=== PATIENT | male | born 1975 | race Caucasian/White ===

== ENCOUNTER → 2017-03-21 | Outpatient (CLI) | payer BC ==
[~2017-03-21] MED LIST: ASPI-621 PO; CELE100C PO; DIAZ5TAB4 PO; DICL50TA2 PO; DOCU-131 PO; ONDA4TAB10 PO; OXYC5TAB3 PO; TRAM50TA2 PO
[2017-03-21 10:56] LABS: HEMATOCRIT 45.7 % (39.2-51.8); HEMOGLOBIN 15.5 g/dL (13.7-18.0); WHITE BLOOD COUNT 4.8 x10^3/uL (3.4-10)
[2017-03-21 11:02] LABS: BLOOD UREA NITROGEN 13 mg/dL (7-18)
[2017-03-21 11:06] LABS: ASPARTATE AMINO TRANSFERASE 13 U/L (15-37)
[2017-03-21 11:20] LABS: HIV 1&2 ANTIBODY SCREEN Nonreactive (Nonreactive); HIV-1 p24 ANTIGEN Nonreactive (Nonreactive)
== END | disposition home or self-care (01) ==
LOC: STAR 09:38
PROVIDERS: ATTEND Orthopaedic Surgery
DX: Z01.818 Encounter for other preprocedural examination (principal); M16.12 Unilateral primary osteoarthritis, left hip
CPT/HCPCS: 36415; 80053; 83036; 85025; 85610; 85730; 86703; 87081; 87899; 93005; G0435

== ENCOUNTER 2017-03-31 07:48 | Inpatient (IN) | payer BC ==
[~2017-03-31] VITALS: Ht 170.2 cm; Wt 99.0 kg
[~2017-03-31 07:48] MED LIST changes: -ASPI-621 PO; -CELE100C PO; -DIAZ5TAB4 PO; -DOCU-131 PO; -ONDA4TAB10 PO; -OXYC5TAB3 PO
[2017-03-31] MEDS ORDERED: VANCOMYCIN PER PHARMACY MC STA (08:02)
[2017-03-31] MEDS ORDERED: VANCOMYCIN 1,800 MG in SODIUM CHLORIDE 0.9% 250 ML IV ONE (08:30)
[2017-03-31 08:46] VITALS: BP 144/93
[2017-03-31] MEDS ORDERED: LACTATED RINGERS 1,000 ML IV SCH (08:54)
[2017-03-31] MEDS ORDERED: FENTANYL PF 100 MCG/2ML ONE ×2 (09:16→10:02)
[2017-03-31] MEDS ORDERED: PROPOFOL 10 MG/ML, 20ML ONE ×2 (09:16→11:27)
[2017-03-31] MEDS ORDERED: MIDAZOLAM 1 MG/ML, 2ML ONE (09:16)
[2017-03-31] MEDS ORDERED: ROCURONIUM 10 MG/ML ONE (09:16)
[2017-03-31] MEDS ORDERED: SUCCINYLCHOLINE 20 MG/ML, 10ML ONE (09:16)
[2017-03-31] MEDS ORDERED: ONDANSETRON 2MG/ML, 2ML ONE ×2 (09:20)
[2017-03-31] MEDS ORDERED: DEXAMETHASONE 4 MG/ML, 1ML ONE ×2 (09:20)
[2017-03-31] MEDS ORDERED: KETOROLAC 60 MG/2 ML ONE (09:30)
[2017-03-31] MEDS ORDERED: TRANEXAMIC ACID 100 MG/ML, 10ML ONE ×5 (09:31→09:32)
[2017-03-31] MEDS ORDERED: SODIUM CHLORIDE 0.9% 50 ML ONE (09:31)
[2017-03-31] MEDS ORDERED: ROPIvacaine/PF 0.2%, 20 ML ONE (09:31)
[2017-03-31] MEDS ORDERED: EPINEPHRINE 1 MG/ML, 1ML ONE (09:32)
[2017-03-31] MEDS ORDERED: CEFAZOLIN 1,000 MG ONE (09:41)
[2017-03-31] MEDS ORDERED: KETAMINE 10 MG/ML, 20ML ONE (10:00)
[2017-03-31] MEDS ORDERED: HYDROmorphone 1 MG/ML, 1ML IV PRN (10:00)
[2017-03-31] MEDS ORDERED: EPHEDRINE 50 MG/ML, 1ML ONE (10:00)
[2017-03-31] MEDS ORDERED: ONDANSETRON 2MG/ML, 2ML IV PRN (10:00)
[2017-03-31] MEDS ORDERED: BISACODYL 10 MG SUPP PR PRN (10:00)
[2017-03-31] MEDS ORDERED: DIAZEPAM 5 MG TABLET PO PRN (10:00)
[2017-03-31] MEDS ORDERED: DIPHENHYDRAMINE 50 MG CAPSULE PO PRN (10:00)
[2017-03-31] MEDS ORDERED: SENNA/DOCUSATE TABLET PO PRN (10:00)
[2017-03-31] MEDS ORDERED: ALUMINUM/MAG/SIMETHICONE 30 ML UDC PO PRN (10:00)
[2017-03-31] MEDS ORDERED: ONDANSETRON 4 MG TABLET PO PRN (10:00)
[2017-03-31] MEDS ORDERED: ACETAMINOPHEN 650 MG/20.3 ML UDC PO PRN (10:00)
[2017-03-31] MEDS ORDERED: MAGNESIUM HYDROXIDE 8%, 30ML UDC PO PRN (10:00)
[2017-03-31] MEDS ORDERED: VASOPRESSIN 20 UNIT/ML, 1ML ONE (10:09)
[2017-03-31] MEDS ORDERED: ACETAMINOPHEN 325 MG TABLET PO PRN (10:30)
[2017-03-31] MEDS ORDERED: FENTANYL PF 100 MCG/2ML IV PRN (10:30)
[2017-03-31] MEDS ORDERED: MIDAZOLAM 1 MG/ML, 2ML IV PRN (10:30)
[2017-03-31] MEDS ORDERED: ALBUTEROL SULFATE 2.5 MG/3 ML NPPB PRN (10:30)
[2017-03-31] MEDS ORDERED: LABETALOL 5MG/ML, 20ML IV PRN (10:30)
[2017-03-31] MEDS ORDERED: hydrALAzine 20 MG/ML, 1ML IV PRN (10:30)
[2017-03-31] MEDS ORDERED: MEPERIDINE/PF 25MG/0.5ML IVPush PRN (10:30)
[2017-03-31] MEDS ORDERED: ONDANSETRON 2MG/ML, 2ML IVPush PRN (10:30)
[2017-03-31] MEDS ORDERED: PROMETHAZINE 25 MG/ML, 1ML IV PRN (10:30)
[2017-03-31] MEDS ORDERED: ACETAMINOPHEN 650 MG/20.3 ML UDC ONE (11:46)
[2017-03-31] MEDS ORDERED: ACETAMINOPHEN 325 MG TABLET ONE (11:46)
[2017-03-31] MEDS ORDERED: HYDROmorphone 1 MG/ML, 1ML ONE ×2 (11:47→12:07)
[2017-03-31] MEDS ORDERED: OXYcodone 5 MG/5 ML ORAL.SOL UDC ONE (11:47)
[2017-03-31] MEDS: OXYcodone 5 MG/5 ML ORAL.SOL UDC PO PRN (11:50)
[2017-03-31] MEDS: HYDROmorphone 1 MG/ML, 1ML IV PRN ×4 (11:50→12:31)
[2017-03-31] MEDS ORDERED: TRANEXAMIC ACID 1,000 MG in SODIUM CHLORIDE 0.9% 100 ML IVPB ONE (12:00)
[2017-03-31] MEDS ORDERED: DIAZEPAM 5 MG/ML, 2ML IVPush PRN (12:30)
[2017-03-31 13:42] VITALS: BP 148/94
[2017-03-31] MEDS: CEFAZOLIN PMX 1GM/50ML 50 ML IVPB SCH ×2 (14:50→22:25)
[2017-03-31] MEDS: D5%-0.45% NACL 1,000 ML IV SCH ×2 (15:21→19:27)
[2017-03-31] MEDS: ASPIRIN 81 MG TABLET EC PO SCH (19:26)
[2017-03-31] MEDS: OXYcodone IR 5MG TABLET PO PRN ×2 (19:26→23:43)
[2017-03-31 20:12] VITALS: BP 125/75
[2017-03-31] MEDS: DOCUSATE 100 MG CAPSULE PO SCH (22:25)
[2017-04-01 00:06] VITALS: BP 95/60
[2017-04-01] MEDS ORDERED: ASPI-621 PO (02:42)
[2017-04-01] MEDS ORDERED: DOCU-131 PO (02:43)
[2017-04-01] MEDS ORDERED: ONDA4TAB10 PO (02:43)
[2017-04-01] MEDS ORDERED: CELE100C PO (02:45)
[2017-04-01] MEDS ORDERED: DIAZ5TAB4 PO (02:46)
[2017-04-01] MEDS ORDERED: OXYC5TAB3 PO (02:47)
[2017-04-01] MEDS: OXYcodone IR 5MG TABLET PO PRN ×3 (03:53→13:16)
[2017-04-01 04:09] VITALS: BP 93/61
[2017-04-01 05:34] LABS: HEMATOCRIT 34.6 % (39.2-51.8); HEMOGLOBIN 11.8 g/dL (13.7-18.0)
[2017-04-01] MEDS ORDERED: DEXAMETHASONE 4 MG/ML, 1ML IVPush SCH (06:00)
[2017-04-01] MEDS: D5%-0.45% NACL 1,000 ML IV SCH (06:49)
[2017-04-01 07:20] VITALS: BP 100/71
[2017-04-01] MEDS: ASPIRIN 81 MG TABLET EC PO SCH (08:19)
[2017-04-01] MEDS: DOCUSATE 100 MG CAPSULE PO SCH (08:19)
[2017-04-01] MEDS ORDERED: TAMSULOSIN 0.4 MG CAP.ER.24H PO SCH (09:00)
[2017-04-01] MEDS ORDERED: KETOROLAC 30 MG/1 ML IV SCH (10:00)
== END 2017-04-01 14:42 | disposition home or self-care (01) | DRG 470 ==
LOC: ORIP 07:48 → 4NOR 13:29 → DCLOUNGE 04-01 14:18
PROVIDERS: ADMIT Orthopaedic Surgery; ATTEND Orthopaedic Surgery
PROC: 0SRB0JA Replacement of Left Hip Joint with Synthetic Substitute, Uncemented, Open Approach (ICD-10-PCS; principal; 2017-03-31 09:30)
DX: M87.9 Osteonecrosis, unspecified (principal)
CPT/HCPCS: 36415; 72170; 85014; 85018; 86850; 86900; C1713; J0171; J0690; J1100; J1170; J1885; J2250; J2405; J2704; J2795; J3010; J3360; C1776; J0330; J7120